=== PATIENT | male | born 1975 | race Caucasian/White ===

== ENCOUNTER → 2021-06-02 | Outpatient (CLI) | payer SELFPAY ==
[2021-06-02 17:20] LABS: HCT 46.9 % (39.0-53.0); HGB 15.5 gm/dL (13.0-17.5); MCHC 33.1 g/dL (31.0-37.0); MCV 90.5 fL (80.0-100.0); Platelet Count 230 k/uL (150-450); RBC 5.19 m/uL (4.30-5.90); RDW 13.1 % (11.5-15.5); WBC 9.2 k/uL (3.8-10.6)
== END | disposition home or self-care (01) ==
LOC: LABPAT 16:13
PROVIDERS: ATTEND Surgery
DX: Z01.812 Encounter for preprocedural laboratory examination (principal); K40.91 Unilateral inguinal hernia, without obstruction or gangrene, recurrent
CPT/HCPCS: 85027

== ENCOUNTER 2021-06-08 06:10 | Day surgery (SDC) | payer SELFPAY ==
[2021-06-04 11:51] VITALS: BMI 26.4
[~2021-06-08 06:10] MED LIST: ACETAMINOPHEN TAB 500 MG TAB PO PRN; HEPARIN SODIUM,PORCINE/PF 5,000 UNIT/0.5 ML SYRINGE SQ PRN
[2021-06-08] MEDS ORDERED: ONDANSETRON 4 MG/2 ML VIAL ONE (06:52)
[2021-06-08] MEDS ORDERED: LACTATED RINGERS 1,000 ML IV ONE ×2 (07:12→09:33)
[2021-06-08] MEDS ORDERED: DEXAMETHASONE SOD PHOSPHATE 4 MG/ML 1 ML VIAL IV ONE (07:12)
[2021-06-08] MEDS ORDERED: ONDANSETRON 4 MG/2 ML VIAL IVP ONE (07:13)
[2021-06-08] MEDS ORDERED: MIDAZOLAM 2 MG/2 ML VIAL IV ONE ×2 (07:22)
[2021-06-08] MEDS ORDERED: fentaNYL (PF) 50 MCG/ML 5 ML AMP IV ONE ×2 (07:22)
--- NOTE | 2021-06-08 07:51 | P.GSHP ---
History of Present Illness H&P Date: 06/08/21 Chief Complaint: Recurrent right inguinal 46-year-old male here today for elective repair recurrent right inguinal hernia. Hernia was initially repaired open with mesh 2011. A few years later patient felt a recurrent swelling they're that has gotten gradually larger. Mild pain at times. Patient does quite a bit of lifting with work. No nausea or vomiting. Past Medical History Past Medical History: No Reported History Additional Past Medical History / Comment(s): RIGHT INGUINAL HERNIA History of Any Multi-Drug Resistant Organisms: None Reported Past Surgical History: Hernia Repair Additional Past Surgical History / Comment(s): RIGHT INGUINAL HERNIA Past Anesthesia/Blood Transfusion Reactions: No Reported Reaction Past Psychological History: No Psychological Hx Reported Smoking Status: Never smoker Past Alcohol Use History: Occasional Past Drug Use History: None Reported - Past Family History Mother Family Medical History: No Reported History Medications and Allergies Home Medications Medication Instructions Recorded Confirmed Type No Known Home Medications 06/04/21 06/08/21 History Allergies Allergy/AdvReac Type Severity Reaction Status Date / Time No Known Allergies Allergy Verified 06/08/21 06:49 Surgical - Exam Vital Signs Temp Pulse Resp BP Pulse Ox 97.8 F 71 16 144/83 99 06/08/21 06:47 06/08/21 06:47 06/08/21 06:47 06/08/21 06:47 06/08/21 06:47 Physical exam: General: Well-developed, well-nourished HEENT: Normocephalic, sclerae nonicteric Abdomen: Nontender, nondistended, recurrent right inguinal hernia reducible Extremities: No edema Neuro: Alert and oriented Assessment and Plan (1) Recurrent inguinal hernia Narrative/Plan: 46-year-old male with recurrent right inguinal hernia. We'll proceed with lapar oscopic da Fannie assisted repair recurrent right inguinal hernia with mesh, possible open, possible bilateral. Risks of bleeding, infection, recurrence, bladder and bowel injury, numbness, nerve injury, conversion to an open procedure were discussed with the patient. The patient understands and wishes to proceed. Current Visit: Yes Status: Acute Code(s): K40.91 - UNILATERAL INGUINAL HERNIA, W/O OBST OR GANGRENE, RECURRENT SNOMED Code(s): 6409829456632
[2021-06-08] MEDS ORDERED: LIDOCAINE 1% INJ 10MG/ML (20 ML MDV) ONE (07:52)
[2021-06-08] MEDS ORDERED: GLYCOPYRROLATE 0.2 MG/ML 2 ML VIAL ONE (07:52)
[2021-06-08] MEDS ORDERED: SUCCINYLCHOLINE CHLORIDE 100 MG/5 ML SYR IV ONE (07:52)
[2021-06-08] MEDS ORDERED: ROPIVACAINE 5 MG/ML 30 ML VIAL ONE (07:52)
[2021-06-08] MEDS ORDERED: PROPOFOL 10 MG/ML 20 ML VIAL IV ONE (07:52)
[2021-06-08] MEDS ORDERED: NEOSTIGMINE 1 MG/ML 10 ML VIAL ONE (07:52)
[2021-06-08] MEDS ORDERED: .fentaNYL (PF) 50 MCG/ML 2 ML AMP ONE (07:52)
[2021-06-08] MEDS ORDERED: SODIUM CHLORIDE 0.9% (PF) 10 ML VIAL ONE (07:52)
[2021-06-08] MEDS ORDERED: ROCURONIUM 10 MG/ML (5 ML VIAL) IV ONE (07:52)
[2021-06-08] MEDS ORDERED: BUPIVACAINE (PF) 0.25% 30 ML VIAL SQ ONE ×2 (08:22→08:23)
--- NOTE | 2021-06-08 09:50 | P.OP ---
Date of Procedure: 06/08/21 Procedure(s) Performed: PREOPERATIVE DIAGNOSIS: Recurrent right inguinal hernia POSTOPERATIVE DIAGNOSIS: Same PROCEDURE: Laparoscopic da Fannie assisted repair recurrent right inguinal hernia with mesh SURGEON: Dr. Matute ANESTHESIA: General OPERATIVE PROCEDURE DETAILS: Patient was placed in the operating table in the supine position. The patient was placed under general anesthesia. The abdomen was prepped and draped in usual sterile fashion. A small curvilinear supraumbilical incision was made. The fascia was retracted anteriorly with [place] forceps. The Veress needle was inserted. The saline drop test was normal. Insufflation took place to 15 mmHg. An 8 mm trocar was placed into the peritoneal cavity. 2 additional 8 mm trochars were placed in the right upper quadrant and left upper quadrant under visualization. The robotic arms were then brought in and docked into place. The fenestrated bipolar was used in the left arm and the laparoscopic melissa was utilized in the right arm. A 30 8 mm scope was used in the up position. The peritoneal cavity was inspected. Looking at the peritoneum there was a slight depression on the right-hand side however no large hernia was seen. The peritoneum was incised in a horizontal fashion cephalad to the internal inguinal ring. Following that careful dissection of the preperitoneal space took place. This took place using both electrocautery, sharp dissection but primarily blunt dissection. Visualization of the pubic tubercle and Todd's ligament took place medially. Full dissection took place laterally as well. The hernia sac was fully dissected and noted to be indirect in location. It was immediately lateral to the inferior epigastric vasculature. There was a large portion of fat going through a relatively small defect there. This was able to be reduced back into the preperitoneal space. Once we had adequate space the extra-large Bard 3-D mid mesh was advanced into the preperitoneal space and flattened out appropriately to cover all potential hernia sites. I then sutured the mesh to the transversalis fascia medially just superior to Todd's ligament. The portion of fat that was present within the hernia was relatively free from the peritoneum itself. For that reason I sutured a portion of this fat to the s uperior medial aspect of the mesh using the suture that was used on the mesh. The peritoneal defect was then closed using a absorbable 2-0 VLok suture. A small defect in the peritoneum was closed using a short running 3-0 Vicryl suture. The pneumoperitoneum was then evacuated. The skin of all 3 sites was closed using a 4-0 Monocryl stitch. Skin glue was then applied. HERNIA CHARACTERISTICS: Length: Recurrent indirect inguinal TYPE OF MESH USED: Bard 3-D extra-large LOCATION OF MESH: Preperitoneal FIXATION: 2-0 V LOC suture DISPOSITION: Stable to recovery room
[2021-06-08 09:53] VITALS: TEMP 97
[2021-06-08 10:03] VITALS: RESP 16
--- NOTE | 2021-06-08 10:36 | P.ANPRN ---
Procedure Note - Anesthesia - Nerve Block Performed Bilateral Erector Spinae Single Time Out Performed: Yes ([id number]) Date of Procedure: 06/08/21 Procedure Start Time: :23 Procedure Stop Time: :29 Location of Patient: PreOp Indication: Acute Post-Operative Pain, Requested by Surgeon Sedation Type: Sedate with meaningful contact maintained Preparation: Sterile Prep Position: Prone Catheter: None Needle Types: Pajunk Needle Gauge: 21 Ultrasound used to visualize needle placement: Yes Ultrasound used to observe medication spread: Yes Injectate: 0.5% Ropivacaine (see comment for volume) (15cc + 15cc nacl each side) Blood Aspirated: No Pain Paresthesia on Injection Noted: No Resistance on Injection: Normal Image Stored and Saved: Yes Events: Uneventful and Well Tolerated
[2021-06-08 11:43] VITALS: BP 126/69; PULSE 78
[2021-06-08] MEDS ORDERED: ACETAMINOPHEN TAB 325 MG TAB PO SCH (12:00)
[2021-06-08] MEDS ORDERED: IBUPROFEN 600 MG TAB PO SCH (12:45)
== END 2021-06-08 12:30 | disposition home or self-care (01) ==
LOC: OR 06:10
PROVIDERS: ATTEND Surgery
DX: K40.91 Unilateral inguinal hernia, without obstruction or gangrene, recurrent (principal)
CPT/HCPCS: 49651; S2900; 64999